=== PATIENT | female | born 1940 | race Caucasian/White ===

== ENCOUNTER 2024-01-19 11:19 | Day surgery (SDC) | payer MEDICARE ==
[2024-01-19] VITALS (8 sets, daily range): BP systolic 94–128; BP diastolic 52–70; PULSE 82–93; RESP 15–21; O2SAT 92–96
[~2024-01-19] VITALS: Ht 165.1 cm; Wt 79.5 kg
[~2024-01-19 11:19] MED LIST: DOXYCYCLINE PO; LEVO25CA4 PO
== END 2024-01-19 13:20 | disposition home or self-care (01) ==
LOC: GI LAB 11:19
PROVIDERS: ATTEND Internal Medicine Gastroenterology
DX: R15.9 Full incontinence of feces (principal); K57.30 Diverticulosis of large intestine without perforation or abscess without bleeding; K64.8 Other hemorrhoids; J45.909 Unspecified asthma, uncomplicated; Z87.891 Personal history of nicotine dependence; Z85.828 Personal history of other malignant neoplasm of skin; Z87.440 Personal history of urinary (tract) infections; Z79.2 Long term (current) use of antibiotics; Z79.890 Hormone replacement therapy; Z90.710 Acquired absence of both cervix and uterus
CPT/HCPCS: 45378; Z7512